=== PATIENT | female | born 1995 | race Caucasian/White ===

== ENCOUNTER 2019-10-03 16:51 | Emergency (ER) | payer BC, OTHER ==
[~2019-10-03] VITALS: Ht 167 cm; Wt 65.9 kg
[2019-10-03] MEDS ORDERED: OMEPRAZOLE (17:05)
[2019-10-03] MEDS ORDERED: FLUTICASONE (17:05)
--- NOTE | 2019-10-03 17:13 | ED Chest Pain ---
General Chief Complaint: Chest Pain Stated Complaint: CHEST PAIN,SOB, HEAVINESS ON CHEST Nursing Triage Note: STATES WHILE AT WORK TODAY SHE STARTED HAVING CHEST PAIN AND PRESSURE. SEES A GI DR FOR HER ACID REFLUX AT [facility]. Nursing Sepsis Screen: No Definite Risk Source: patient Exam Limitations: no limitations History of Present Illness Date Seen by Provider: Oct 03, 2019 Time Seen by Provider: 17:11 Initial Comments To ER with reports of chest pain shortness of breath and heaviness that began while at work. 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 She had to leave work because of the pain and states "I've never driven himself fast and all my life". She denies anxiety as a precipitating factor but seems very anxious. She had her gallbladder removed at [facility] about 7 or 8 weeks ago, she's been having bowel irregularity alternating from constipation to diarrhea, she is scheduled to see office support at [facility] in the upcoming weeks. No fevers or chills. No cough. She is on Prilosec and Carafate currently. Timing/Duration: changing over time Severity/Quality: moderate Activities at Onset: none ASA po RESTAURANT MAINTENANCE TECHNICIAN: No NTG SL RESTAURANT MAINTENANCE TECHNICIAN: No Associated Symptoms: shortness of breath Allergies and Home Medications Allergies Coded Allergies: No Known Drug Allergies (Unverified , 10/03/19) Home Medications Metoclopramide HCl 5 Mg Tablet, 5 MG PO TID Prescribed by: PURNIMA WINSLOW on 10/03/191947 Pantoprazole Sodium 40 Mg Tablet.dr, 40 MG PO DAILY Prescribed by: PURNIMA WINSLOW on 10/03/191947 Patient Home Medication List Home Medication List Reviewed: Yes Review of Systems Review of Systems Constitutional: see HPI EENTM: No Symptoms Reported Respiratory: See HPI, Shortness of Air Cardiovascular: See HPI, Chest Pain Gastrointestinal: No Symptoms Reported Genitourinary: No Symptoms Reported Musculoskeletal: no symptoms reported Skin: no symptoms reported Psychiatric/Neurological: No Symptoms Reported Endocrine: No Symptoms Reported Past Eyurevl-Qptkcj-Aenftp Hx Patient Social History Alcohol Use: Denies Use Recreational Drug Use: No Smoking Status: Never a Smoker Recent Foreign Travel: No Contact w/Someone Who Travel: No Recent Infectious Disease Expo: No Recent Hopitalizations: No Seasonal Allergies Seasonal Allergies: No Past Medical History Surgeries: No Respiratory: No Cardiac: No Neurological: No Genitourinary: No Gastrointestinal: Yes Gastroesophageal Reflux Musculoskeletal: No Endocrine: No HEENT: No Cancer: No Psychosocial: No Integumentary: No Physical Exam Vital Signs Vital Signs - First Documented 10/03/19 16:55 Temp 36.3 Pulse 73 Resp 16 B/P (MAP) 139/93 (108) Pulse Ox 99 O2 Delivery Room Air Capillary Refill : Less Than 3 Seconds Height, Weight, BMI Height: '" Weight: lbs. oz. kg; 23.00 BMI Method: General Appearance: No Apparent Distress, WD/WN, Anxious Respiratory: No Accessory Muscle Use, No Respiratory Distress Cardiovascular: Regular Rate, Rhythm, Normal Peripheral Pulses Gastrointestinal: No Organomegaly, Non Tender, Soft Neurologic/Psychiatric: Alert, Oriented x3 Skin: Normal Color, Warm/Dry Progress/Results/Core Measures Results/Orders Lab Results Laboratory Tests Test 10/03/19 17:00 Range/Units White Blood Count 8.2 4.3-11.0 10^3/uL Red Blood Count 5.01 4.35-5.85 10^6/uL Hemoglobin 15.5 11.5-16.0 G/DL Hematocrit 46 35-52 % Mean Corpuscular Volume 91 80-99 FL Mean Corpuscular Hemoglobin 31 25-34 PG Mean Corpuscular Hemoglobin Concent 34 32-36 G/DL Red Cell Distribution Width 12.2 10.0-14.5 % Platelet Count 195 130-400 10^3/uL Mean Platelet Volume 11.8 H 7.4-10.4 FL Neutrophils (%) (Auto) 63 42-75 % Lymphocytes (%) (Auto) 28 12-44 % Monocytes (%) (Auto) 7 0-12 % Eosinophils (%) (Auto) 2 0-10 % Basophils (%) (Auto) 0 0-10 % Neutrophils # (Auto) 5.2 1.8-7.8 X 10^3 Lymphocytes # (Auto) 2.3 1.0-4.0 X 10^3 Monocytes # (Auto) 0.6 0.0-1.0 X 10^3 Eosinophils # (Auto) 0.2 0.0-0.3 10^3/uL Basophils # (Auto) 0.0 0.0-0.1 10^3/uL D-Dimer < 0.27 0.00-0.49 UG/ML Sodium Level 130 L 135-145 MMOL/L Potassium Level 4.3 3.6-5.0 MMOL/L Chloride Level 96 L 98-107 MMOL/L Carbon Dioxide Level 24 21-32 MMOL/L Anion Gap 10 5-14 MMOL/L Blood Urea Nitrogen 18 7-18 MG/DL Creatinine 1.01 0.60-1.30 MG/DL Estimat Glomerular Filtration Rate > 60 BUN/Creatinine Ratio 18 Glucose Level 94 70-105 MG/DL Calcium Level 9.7 8.5-10.1 MG/DL Corrected Calcium 8.5-10.1 MG/DL Total Bilirubin 0.4 0.1-1.0 MG/DL Aspartate Amino Transf (AST/SGOT) 86 H 5-34 U/L Alanine Aminotransferase (ALT/SGPT) 208 H 0-55 U/L Alkaline Phosphatase 68 40-136 U/L Troponin I <0.028 NG/ML C-Reactive Protein High Sensitivity 0.05 0.00-0.50 MG/DL B-Type Natriuretic Peptide < 10.0 <100.0 PG/ML Total Protein 8.4 H 6.4-8.2 GM/DL Albumin 4.9 H 3.2-4.5 GM/DL Serum Test, Qualitative NEGATIVE NEGATIVE My Orders Orders - PURNIMA WINSLOW APRN Cbc With Automated Diff (10/03/19 16:54) Comprehensive Metabolic Panel (10/03/19 16:54) BNP (10/03/19 16:54) Fibrin Degradation Products (10/03/19 16:54) Troponin I (10/03/19 16:54) Hs C Reactive Protein (10/03/19 16:54) Hcg,Qualitative Serum (10/03/19 16:54) Ed Iv/Invasive Line Start (10/03/19 16:54) Ekg Tracing (10/03/19 16:54) Chest Pa/Lat (2 View) (10/03/19 16:54) Antacid Suspension (Mylanta Suspension (10/03/19 17:15) Lidocaine 2% Viscous 15 Ml (Xylocaine Vi (10/03/19 17:15) Ct Abdomen/Pelvis W (10/03/19 17:46) Iohexol Injection (Omnipaque 350 Mg/Ml 1 (10/03/19 18:00) Received Contrast (Hold Metformin- Contr (10/03/19 18:00) Ns (Ivpb) (Sodium Chloride 0.9% Ivpb Bag (10/03/19 18:00) Metoclopramide Injection (Reglan Injecti (10/03/19 19:45) Diphenhydramine Injection (Benadryl Inje (10/03/19 20:00) Medications Given in ED Current Medications Medications Dose Ordered Sig/Sarkis Route Start Time Stop Time Status Last Admin Dose Admin Al Hydrox/Mg Hydrox/Simethicone 30 ml ONCE ONCE PO 10/03/19 17:15 10/03/19 17:16 DC 10/03/19 17:29 30 ML Lidocaine HCl 10 ml ONCE ONCE PO 10/03/19 17:15 10/03/19 17:16 DC 10/03/19 17:29 10 ML Metoclopramide HCl 5 mg ONCE ONCE IVP 10/03/19 19:45 10/03/19 19:46 DC 10/03/19 19:41 5 MG Vital Signs/I&O 10/03/19 10/03/19 16:55 17:00 Temp 36.3 Pulse 73 Resp 16 B/P (MAP) 139/93 (108) Pulse Ox 99 O2 Delivery Room Air Room Air Blood Pressure Mean: 108 Diagnostic Imaging Diagonstic Imaging: CT Comments NAME: [facility] REC#: [id number] PT STATUS: REG ER : 1995 PHYSICIAN: PURNIMA WINSLOW APRN ADMIT DATE: 10/03/19/ER Draft Date of Exam:10/03/19 CT ABDOMEN/PELVIS W PROCEDURE: CT abdomen and pelvis with contrast. TECHNIQUE: Multiple contiguous axial images were obtained through the abdomen and pelvis after administration of intravenous contrast. Auto Exposure Controls were utilized during the CT exam to meet ALARA standards for radiation dose reduction. INDICATION: Chest pain and pressure, reflux, upper and lower abdominal pain left-sided, bloating and nausea EXAMINATION: CT abdomen and pelvis with contrast 10/03/2019 FINDINGS: Lung bases are clear. Fatty infiltration noted throughout the liver. There is evidence of previous cholecystectomy. The spleen normal. Kidneys and pancreas unremarkable. Adrenal glands normal. The stomach is filled with debris. Dependent hyperdense material within the stomach very likely recently ingested material. A focal mass or hematoma difficult to completely exclude at this time and this could be followed to assure resolution. There are findings of constipation. Appendix normal. No free air, no ascites. The osseous structures demonstrate no acute abnormality. There is a focal collection of air within the right upper quadrant adjacent to the postoperative clips very likely within the duodenum; this is atypical for free air. IMPRESSION: 1. Findings of constipation with no acute inflammatory process appreciated. 2. Stomach filled with debris with a more hyperdense area dependently along the stomach possibly recently ingested material, however, a mass or hematoma difficult to completely exclude at this time and short-term follow-up to assure resolution recommended. Other findings as above. Dictated on workstation # [id number] Dict: 10/03/19 185 Trans: 10/03/191901 MARKY [id number] Interpreted by: JEFERSON HILLMAN MD Electronically signed by: Departure Communication (Admissions) patient is aware of the elevated liver enzymes, this is the reason she is going to see a office support in the next few weeks. 1952-now quite restless after the Reglan. We'll give Benadryl IV. Impression Primary Impression: Chest pain Qualified Codes: R07.9 - Chest pain, unspecified Additional Impression: Constipation Disposition: HOME, SELF-CARE Condition: Stable Departure-Patient Inst. Decision time for Depature: 19:47 Referrals: NO,LOCAL PHYSICIAN (PCP) Primary Care Physician Patient Instructions: Constipation, Adult (DC) Add. Discharge Instructions: 1. Follow-up with gastroenterology as directed. Take MiraLAX 1 capful in a small glass of water every 20 minutes until you have a bowel movement. Alternatively you could put 6 or 7 capfuls and a bottle of Gatorade and drink 2 or 3 of these. Stop the Prilosec, start the Protonix. Reglan as well. All discharge instructions reviewed with patient and/or family. Voiced un derstanding. Scripts Metoclopramide HCl (Reglan) 5 Mg Tablet 5 MG PO TID, #14 TAB Prov: PURNIMA WINSLOW APRN 10/03/19 Pantoprazole Sodium (Protonix) 40 Mg Tablet.dr 40 MG PO DAILY, #14 TAB Prov: PURNIMA WINSLOW APRN 10/03/19 PURNIMA WINSLOW APRN Oct 03, 2019 17:13
[2019-10-03 17:14] LABS: BASOPHILS % (AUTO) 0 % (0-10); EOSINOPHILS # (AUTO) 0.2 10^3/uL (0.0-0.3); EOSINOPHILS % (AUTO) 2 % (0-10); HEMATOCRIT 46 % (35-52); HEMOGLOBIN 15.5 G/DL (11.5-16.0); LYMPHOCYTES # (AUTO) 2.3 X 10^3 (1.0-4.0); LYMPHOCYTES % (AUTO) 28 % (12-44); MEAN CORPUSCULAR HEMOGLOBIN 31 PG (25-34); MEAN CORPUSCULAR HGB CONC 34 G/DL (32-36); MEAN CORPUSCULAR VOLUME 91 FL (80-99); MEAN PLATELET VOLUME 11.8 FL (7.4-10.4); MONOCYTES # (AUTO) 0.6 X 10^3 (0.0-1.0); MONOCYTES % (AUTO) 7 % (0-12); NEUTROPHILS # (AUTO) 5.2 X 10^3 (1.8-7.8); NEUTROPHILS % (AUTO) 63 % (42-75); PLATELET COUNT 195 10^3/uL (130-400); RED CELL DISTRIBUTION WIDTH 12.2 % (10.0-14.5); WHITE BLOOD COUNT 8.2 10^3/uL (4.3-11.0)
[2019-10-03] MEDS ORDERED: ANTACID SUSP 30 ML UDC (MYLANTA) PO ONE (17:15)
[2019-10-03] MEDS ORDERED: LIDOCAINE 2% VISCOUS 15 ML UDC PO ONE (17:15)
[2019-10-03 17:40] LABS: ALANINE AMINOTRANSFERASE 208 U/L (0-55); ALBUMIN 4.9 GM/DL (3.2-4.5); ALKALINE PHOSPHATASE 68 U/L (40-136); BILIRUBIN,TOTAL 0.4 MG/DL (0.1-1.0); BUN/CREATININE RATIO 18; CALCIUM 9.7 MG/DL (8.5-10.1); CARBON DIOXIDE 24 MMOL/L (21-32); CHLORIDE 96 MMOL/L (98-107); CREATININE SERUM 1.01 MG/DL (0.60-1.30); GFR ESTIMATED > 60; GLUCOSE 94 MG/DL (70-105); POTASSIUM 4.3 MMOL/L (3.6-5.0); SODIUM 130 MMOL/L (135-145); TOTAL PROTEIN 8.4 GM/DL (6.4-8.2)
[2019-10-03] MEDS ORDERED: NS 100 ML (IVPB) BAG IV ONE (18:00)
[2019-10-03] MEDS ORDERED: IOHEXOL 350 MG/ML 100 ML (OMNIPAQUE 350) VIAL IV ONE (18:00)
[2019-10-03] MEDS ORDERED: HOLD METFORMIN - RECEIVED CONTRAST 20 ML VIAL IV SCH (18:00)
--- NOTE | 2019-10-03 18:50 | Diagnostic Imaging Report ---
INDICATION: Anterior chest pain. EXAMINATION: 2 view chest 10/03/2019. FINDINGS: Heart and pulmonary vasculature unremarkable. Lungs and pleural spaces clear. No pneumothorax. IMPRESSION: Negative chest. Dictated by: Dictated on workstation # [id number]
--- NOTE | 2019-10-03 19:03 | Diagnostic Imaging Report ---
PROCEDURE: CT abdomen and pelvis with contrast. TECHNIQUE: Multiple contiguous axial images were obtained through the abdomen and pelvis after administration of intravenous contrast. Auto Exposure Controls were utilized during the CT exam to meet ALARA standards for radiation dose reduction. INDICATION: Chest pain and pressure, reflux, upper and lower abdominal pain left-sided, bloating and nausea EXAMINATION: CT abdomen and pelvis with contrast 10/03/2019 FINDINGS: Lung bases are clear. Fatty infiltration noted throughout the liver. There is evidence of previous cholecystectomy. The spleen normal. Kidneys and pancreas unremarkable. Adrenal glands normal. The stomach is filled with debris. Dependent hyperdense material within the stomach very likely recently ingested material. A focal mass or hematoma difficult to completely exclude at this time and this could be followed to assure resolution. There are findings of constipation. Appendix normal. No free air, no ascites. The osseous structures demonstrate no acute abnormality. There is a focal collection of air within the right upper quadrant adjacent to the postoperative clips very likely within the duodenum; this is atypical for free air. IMPRESSION: 1. Findings of constipation with no acute inflammatory process appreciated. 2. Stomach filled with debris with a more hyperdense area dependently along the stomach possibly recently ingested material, however, a mass or hematoma difficult to completely exclude at this time and short-term follow-up to assure resolution recommended. Other findings as above. Dictated by: Dictated on workstation # [id number]
[2019-10-03] MEDS ORDERED: METOCLOPRAMIDE INJ 10 MG/2 ML (REGLAN) IVP ONE (19:45)
[2019-10-03] MEDS ORDERED: PANT40TA2 PO (19:48)
[2019-10-03] MEDS ORDERED: METO5TAB75 PO (19:48)
[2019-10-03] MEDS ORDERED: diphenhydrAMINE 50 MG/ML INJ (BENADRYL) IVP ONE (20:00)
[2019-10-03 20:20] VITALS: BP 115/83
--- OUTSIDE RECORDS SUMMARY | 2019-10-07 17:41 | XMS REPORT | Continuity of Care Document ---
Author Organization Unknown Address Unknown Phone Unavailable Allergies Active Description Code Type Severity Reaction Onset Reported/Identified Relationship to Patient Clinical Status [place] [address] CORWIN REYEZ N/A N/A 10/03/2019 Yes No Known Drug Allergies [id number] Drug Allergy Unknown N/A 10/03/2019 Medications There is no data. Problems Date Dx Coded Attending Type Code Diagnosis Diagnosed By 05/10/2018 PURNIMA BARROW N92.6 Irregular menstruation, unspecified 05/10/2018 PURNIMA BARROW R74.8 Abnormal levels of other serum enzymes 05/10/2018 R19.4 Nolen ge in bowel habit 05/10/2018 R74.8 Abno rmal levels of other serum enzymes 05/10/2018 BRAVO JESUS R74.8 Abnormal levels of other serum enzymes 05/10/2018 R74.8 Abno rmal levels of other serum enzymes 05/10/2018 R74.8 Abno rmal levels of other serum enzymes 05/10/2018 R10.13 Epi gastric pain 05/10/2018 R74.8 Abno rmal levels of other serum enzymes 05/10/2018 R10.13 Epi gastric pain 05/10/2018 R74.8 Abno rmal levels of other serum enzymes 05/10/2018 R74.8 Abno rmal levels of other serum enzymes 05/10/2018 R10.13 Epi gastric pain 08/19/2018 N92.6 Irre gular menstruation, unspecified 08/19/2018 Z30.011 En counter for initial prescription of contraceptive pills 08/19/2018 KAMRON RAHMAN N92.6 Irregular menstruation, unspecified 08/19/2018 KAMRON RAHMAN Z30.011 Encounter for initial prescription of contraceptive pills 09/12/2018 THALIA SMITH R10 .13 Epigastric pain 09/12/2018 THALIA SMITH R19 .4 Change in bowel habit 09/12/2018 THALIA SMITH R74 .8 Abnormal levels of other serum enzymes 09/16/2018 KAMRON RAHMAN 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 09/16/2018 KAMRON RAHMAN R89.9 Unspecified abnormal finding in specimens from other organs, systems and tissues 10/14/2018 THALIA SMITH D58 .2 Other hemoglobinopathies 10/14/2018 THALIA SMITH R94 .5 Abnormal results of liver function studies 10/14/2018 THALIA SMITH D58 .2 Other hemoglobinopathies 10/14/2018 THALIA SMITH R94 .5 Abnormal results of liver function studies 10/14/2018 THALIA SMITH D58 .2 Other hemoglobinopathies 10/14/2018 THALIA SMITH K86 .1 Other chronic pancreatitis 10/14/2018 THALIA SMITH R94 .5 Abnormal results of liver function studies 10/14/2018 PURNIMA BARROW R94.5 Abnormal results of liver function studies 10/14/2018 THALIA SMITH K86 .1 Other chronic pancreatitis 10/14/2018 THALIA SMITH R94 .5 Abnormal results of liver function studies 10/14/2018 PURNIMA BARROW Z30.09 Encounter for other general counseling and advice on contraception 10/14/2018 PURNIMA BARROW Z82.49 Family history of ischemic heart disease and other diseases of the circulatory system 10/14/2018 PURNIMA BARROW N92.6 Irregular menstruation, unspecified 10/14/2018 PURNIMA BARROW Z30.09 Encounter for other general counseling and advice on contraception 10/14/2018 PURNIMA BARROW R74.8 Abnormal levels of other serum enzymes 10/14/2018 PURNIMA BARROW Z30.09 Encounter for other general counseling and advice on contraception 10/14/2018 THALIA SMITH 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 .2 Other hemoglobinopathies 10/14/2018 THALIA SMITH K86 .1 Other chronic pancreatitis 10/14/2018 THALIA SMITH R94 .5 Abnormal results of liver function studies 10/28/2018 J02.9 Acut e pharyngitis, unspecified 10/28/2018 J06.9 Acut e upper respiratory infection, unspecified 10/28/2018 M26.69 Oth er specified disorders of temporomandibular joint 10/28/2018 KAMRON RAHMAN J02.9 Acute pharyngitis, unspecified 11/04/2018 THALIA SMITH R94 .5 Abnormal results of liver function studies 11/04/2018 THALIA SMITH K86 .1 Other chronic pancreatitis 11/04/2018 THALIA SMITH T18.2XXA Foreign body in stomach, initial encounter 11/04/2018 THALIA SMITH R94 .5 Abnormal results of liver function studies 11/04/2018 THALIA SMITH K85 .90 Acute pancreatitis without necrosis or infection, unspecified 11/04/2018 THALIA SMITH R94 .5 Abnormal results of liver function studies 11/04/2018 THALIA SMITH T18.2XXA Foreign body in stomach, initial encounter 11/04/2018 THALIA SMITH T18.2XXA Foreign body in stomach, initial encounter 11/08/2018 THALIA SMITH R94 .5 Abnormal results of liver function studies 11/08/2018 R94.5 Abno rmal results of liver function studies 11/08/2018 R94.5 Abno rmal results of liver function studies 11/08/2018 R94.5 Abno rmal results of liver function studies 11/08/2018 THALIA SMITH K85 .90 Acute pancreatitis without necrosis or infection, unspecified 11/08/2018 THALIA SMITH K29 .70 Gastritis, unspecified, without bleeding 11/08/2018 THALIA SMITH K29 .70 Gastritis, unspecified, without bleeding 12/30/2018 PURNIMA BARROW R79.1 Abnormal coagulation profile 12/31/2018 PURNIMA BARROW N97.0 Female infertility associated with anovulation 12/31/2018 PURNIMA BARROW R76.0 Raised antibody titer 03/04/2019 [id number] Urinary Tract Infection 03/04/2019 N39.0 Urin stephanie tract infection, site not specified 03/04/2019 N39.0 Urin stephanie tract infection, site not specified 04/11/2019 R11.0 Nausea 04/11/2019 R11.0 Nausea 04/11/2019 R11.0 Nausea 07/01/2019 [id number] GI Problem 07/01/2019 [id number] GI Problem 07/01/2019 R10.10 Upp er abdominal pain, unspecified 07/01/2019 R10.819 Ab dominal tenderness, unspecified site 07/01/2019 R11.0 Nausea 07/01/2019 R10.10 Upp er abdominal pain, unspecified 07/01/2019 R10.819 Ab dominal tenderness, unspecified site 07/01/2019 R11.0 Nausea 07/01/2019 R10.10 Upp er abdominal pain, unspecified 07/01/2019 R10.819 Ab dominal tenderness, unspecified site 07/01/2019 R11.0 Nausea 07/01/[address] for immunization 07/01/2019 R10.10 Upp er abdominal pain, unspecified 07/01/2019 R10.819 Ab dominal tenderness, unspecified site 07/01/2019 R11.0 Nausea 07/15/2019 R10.10 Upp er abdominal pain, unspecified 07/15/2019 R11.0 Nausea 07/20/2019 JESUS, BRAVO [id number] Abdominal Pain 07/20/2019 JESUS, BRAVO [id number] Abdominal Pain 07/20/2019 JESUS, BRAVO 625071 Abdominal Pain 07/20/2019 JESUS, BRAVO 518015 Abdominal Pain 07/21/2019 JESUS, BRAVO K59.00 Constipation, unspecified 07/21/2019 JESUS, BRAVO R10.12 Left upper quadrant pain 07/21/2019 JESUS, BRAVO K59.00 Constipation, unspecified 07/21/2019 JESUS, BRAVO R10.12 Left upper quadrant pain 07/24/2019 AMBERLY PATEL R10.10 Upper abdominal pain, unspecified 07/24/2019 AMBERLY PATEL R11.0 Nausea 07/24/2019 AMBERLY PATEL R94.8 Abnormal results of function studies of other organs and systems 07/24/2019 AMBERLY PATEL R94.8 Abnormal results of function studies of other organs and systems 07/24/2019 R94.8 Abno rmal results of function studies of other organs and systems 07/24/2019 AMBERLY PATEL R10.10 Upper abdominal pain, unspecified 07/24/2019 AMBERLY PATEL R11.0 Nausea 07/24/2019 AMBERLY PATEL R94.8 Abnormal results of function studies of other organs and systems 08/21/2019 AMBERLY PATEL 525 2 Week Follow-up 08/21/2019 AMBERLY PATEL Z90.49 Acquired absence of other specified parts of digestive tract 08/21/2019 AMBERLY PATEL Z90.49 Acquired absence of other specified parts of digestive tract 08/30/2019 125789 Hea rtburn 08/30/2019 190 Polydipsia 08/30/2019 46 Fatigue 08/30/2019 R53.83 Oth er fatigue 08/30/2019 R63.1 Poly dipsia 08/30/2019 R53.83 Oth er fatigue 08/30/2019 R63.1 Poly dipsia 09/19/2019 940678 Diz ziness 09/19/2019 28 Cough 09/19/2019 52 Headache 09/19/2019 82 Sore Throat 09/19/2019 100537 Diz ziness 09/19/2019 28 Cough 09/19/2019 52 Headache 09/19/2019 82 Sore Throat 09/19/2019 J01.10 Acu te frontal sinusitis, unspecified 09/19/2019 M94.0 Eddi drocostal junction syndrome (tietze) 09/19/2019 J01.10 Acu te frontal sinusitis, unspecified 09/19/2019 M94.0 Eddi drocostal junction syndrome (tietze) 10/06/2019 R10.11 Rig ht upper quadrant pain 10/06/2019 R10.31 Rig ht lower quadrant pain 10/06/2019 R11.0 Nausea 10/06/2019 R10.11 Rig ht upper quadrant pain 10/06/2019 R10.31 Rig ht lower quadrant pain 10/06/2019 R11.0 Nausea 10/06/2019 R10.31 Rig ht lower quadrant pain 10/06/2019 R11.0 Nausea 10/06/2019 R10.31 Rig ht lower quadrant pain 10/06/2019 R11.0 Nausea 10/07/2019 R10.10 Upp er abdominal pain, unspecified 10/07/2019 R10.10 Upp er abdominal pain, unspecified 10/07/2019 R11.0 Nausea 10/07/2019 Z90.49 Acq uired absence of other specified parts of digestive tract 10/07/2019 304369 Abd ominal Pain 10/07/2019 919893 Abd ominal Pain 10/07/2019 122025 Abd ominal Pain 10/07/2019 R10.11 Rig ht upper quadrant pain 10/07/2019 R10.31 Rig ht lower quadrant pain 10/07/2019 R11.0 Nausea 10/07/2019 592387 Abd ominal Pain 10/07/2019 023400 Abd ominal Pain 10/07/2019 374295 Abd ominal Pain 10/07/2019 R10.9 Unsp ecified abdominal pain 10/07/2019 R11.2 Naus ea with vomiting, unspecified 10/07/2019 R10.9 Unsp ecified abdominal pain 10/07/2019 R10.9 Unsp ecified abdominal pain Procedures Code Description Performed By Per formed On [id number] CB C AND DIFF (MANUAL DIFF IF NECESSARY) 08/19/2018 GGE8092 CO MPREHENSIVE METABOLIC PANEL 08/19/2018 XIY7134 HC G QUANTITATIVE 08/19/2018 FUZ5690 TH YROID CASCADE 08/19/2018 MXS3164 CB C AND DIFF (MANUAL DIFF IF NECESSARY) 09/16/2018 HNB1231 LIPASE 09/16/2018 REF51 AMB REFERRAL TO OB-TILE AND MOTTLE SUPERVISOR 10/14/2018 REF25 AMB REFERRAL TO GASTROENTEROLOGY 10/14/2018 WTJ7749 CO MPREHENSIVE METABOLIC PANEL 10/14/2018 ZIQ9128 IG G SUBCLASSES 10/14/[address] OTEIN S ANTIGEN, TOTAL AND FREE 10/14/2018 XUS9204 AN TICARDIOLIPIN ANTIBODIES 10/14/2018 SGC5506 BE AS-6-TKDEXFBYNNYC IGG AND IGM 10/14/2018 QVA0812 AN TIPHOSPHOLIPID PANEL II 10/14/2018 WKY9975 AMYLASE 10/14/2018 NAP1766 AN TIPHOSPHOLIPID PANEL II 10/14/2018 HOG3306 CO MPREHENSIVE METABOLIC PANEL 10/14/2018 SDT6421 ES TRADIOL 10/14/2018 QKM9599 FSH 10/14/2018 UAP0304 LA /SSB ANTIBODY 10/14/2018 BQT0105 LIPASE 10/14/[address] OGESTERONE 10/14/[address] OLACTIN 10/14/[address] OTEIN C ACTIVITY 10/14/[address] OTEIN S ACTIVITY 10/14/2018 JYO8446 RO /SSA ANTIBODY 10/14/2018 AUS3811 TH YROID CASCADE 10/14/2018 LSU6134 TE STOSTERONE TOTAL+BIOAVAILABLE 10/14/2018 OBB8280 AMYLASE 10/14/2018 CHA5921 AN TICARDIOLIPIN ANTIBODIES 10/14/2018 KJJ5282 BE DK-5-JNBSGNJAZQGL IGG AND IGM 10/14/2018 QLS2905 CO MPREHENSIVE METABOLIC PANEL 10/14/2018 HVH6302 ES TRADIOL 10/14/2018 BTZ7468 FSH 10/14/2018 VMI1797 LA /SSB ANTIBODY 10/14/2018 YSD9453 LIPASE 10/14/[address] OGESTERONE 10/14/[address] OLACTIN 10/14/[address] OTEIN C ACTIVITY 10/14/[address] OTEIN S ACTIVITY 10/14/2018 QJJ7016 RO /SSA ANTIBODY 10/14/2018 QVN1089 TH YROID CASCADE 10/14/2018 PPC4871 AN TIPHOSPHOLIPID PANEL II 10/14/2018 UIS4706 TE STOSTERONE TOTAL+BIOAVAILABLE 10/14/2018 FPG3658 CU LTURE, THROAT 10/28/2018 POC14 POCT RAPID STREP A 10/28/2018 SUR1 CASE REQUEST OPERATING ROOM 11/04/2018 IVT3 INSER T PERIPHERAL IV 11/04/2018 VZO972 NOT TIFFANIE PHYSICIAN 11/04/2018 CHX531 HEI GHT AND WEIGHT 11/04/2018 JTU325 VIT AL SIGNS 11/04/2018 AYV272 JOHN LY WARMING BLANKET 11/04/2018 LNV3468 UR INE TEST 11/04/2018 ADT8 DISCH ARGE PATIENT 11/04/2018 IJW233 VANCE SING COMMUNICATION 11/04/2018 GMV375 VIT AL SIGNS 11/04/2018 PUA784 GLU COSE POC 11/04/2018 BTZ5722 UR INE TEST 11/08/2018 SUR1 CASE REQUEST OPERATING ROOM 11/08/2018 IVT3 INSER T PERIPHERAL IV 11/08/2018 UGA906 NOT TIFFANIE PHYSICIAN 11/08/2018 MFT999 HEI GHT AND WEIGHT 11/08/2018 SVJ519 VIT AL SIGNS 11/08/2018 IIX791 JOHN LY WARMING BLANKET 11/08/2018 ZEB5237 UR INE TEST 11/08/2018 STI9407 TI SSUE PATHOLOGY OR BIOPSY 11/08/2018 XNB016 VANCE SING COMMUNICATION 11/08/2018 PHP310 VIT AL SIGNS 11/08/2018 IKX123 GLU COSE POC 11/08/2018 JBL5130 AN TIPHOSPHOLIPID PANEL II 12/31/2018 XYC8079 AN TICARDIOLIPIN ANTIBODIES 12/31/2018 VQT8967 BE EU-6-SZHNZYTDYYMC IGG AND IGM 12/31/2018 YJA4563 ES TRADIOL 12/31/2018 NBH2463 FSH 12/31/2018 TWO7188 [place] TEINIZING HORMONE 12/31/[address] OGESTERONE 12/31/[address] OTHROMBIN TIME/INR 12/31/2018 LTN6122 TH YROID CASCADE 12/31/2018 ARZ7926 VVT APL TESTING 12/31/2018 MZU2507 AN TIPHOSPHOLIPID PANEL II 12/31/2018 POC5 POCT URINALYSIS DIPSTICK 03/04/2019 POC5 POCT URINALYSIS DIPSTICK 03/04/2019 POO8036 CB C AND DIFF (MANUAL DIFF IF NECESSARY) 04/11/2019 URO2862 CO MPREHENSIVE METABOLIC PANEL 04/11/2019 OYM1392 HC G QUANTITATIVE 04/11/2019 ELH7280 BI LIRUBIN DIRECT 07/01/2019 YZK9457 CB C AND DIFF (MANUAL DIFF IF NECESSARY) 07/01/2019 PCV7189 CO MPREHENSIVE METABOLIC PANEL 07/01/2019 MLF5846 HC G QUANTITATIVE 07/01/2019 GMN4903 LIPASE 07/01/2019 FEK7642 UR INALYSIS REFLEX 07/01/2019 IMM85 FLU VACCINE GREATER THAN OR EQUAL TO 6MO PRESERVATIVE FREE QUADRIVALENT IM 07/01/2019 CKD8725 CE LIAC SCREEN 07/16/2019 UXQ9223 IG G SUBCLASSES 07/16/[address] ABDOMEN PELVIS W CONTRAST 07/20/2019 IVT3 INSER T PERIPHERAL IV 07/20/2019 XSZ5725 UR INALYSIS REFLEX 07/20/2019 MPP8403 UR INE TEST 07/20/2019 CTT0548 CB C AND DIFF (MANUAL DIFF IF NECESSARY) 07/20/2019 BPW6075 CO MPREHENSIVE METABOLIC PANEL 07/20/2019 DDJ3255 LACTATE 07/20/2019 RQU6348 LIPASE 07/20/2019 KUV5600 MA GNESIUM 07/20/[address] ABDOMEN PELVIS W CONTRAST 07/20/2019 ADT18 ED D ISCHARGE PATIENT 07/21/2019 REF27 AMB REFERRAL TO GENERAL SURGERY 07/24/2019 OYU0163 UR INE TEST 08/07/2019 SUR1 CASE REQUEST OPERATING ROOM 08/07/2019 IVT3 INSER T PERIPHERAL IV 08/07/2019 MNY112 NOT TIFFANIE PHYSICIAN 08/07/2019 CKU192 HEI GHT AND WEIGHT 08/07/2019 SIG657 VIT AL SIGNS 08/07/2019 GDL294 JOHN LY WARMING BLANKET 08/07/2019 EGH674 GLU COSE POC 08/07/2019 TOM078 NOT TIFFANIE PHYSICIAN 08/07/2019 XCE085 VANCE SING COMMUNICATION 08/07/2019 OWQ829 VANCE SING OXYGEN ORDERS/INSTRUCTIONS 08/07/2019 QVM425 HATTIE SURE BLOOD PRESSURE 08/07/2019 BQH011 VIT AL SIGNS 08/07/2019 RGJ222 CON TINUOUS PULSE OXIMETRY 08/07/2019 LDE446 JOHN LY WARMING BLANKET 08/07/2019 THJ443 GLU COSE POC 08/07/2019 NVB8230 TI SSUE PATHOLOGY OR BIOPSY 08/07/2019 JJH4351 TI SSUE PATHOLOGY OR BIOPSY 08/07/2019 DIET24 DIET 08/07/2019 KBQ529 ACT IVITY TOLERATED 08/07/2019 EIJ229 AUSTEN GHT BEARING STATUS 08/07/2019 GGY213 WOU ND CARE ROUTINE (SPECIFY) 08/07/2019 QKY117 DIS CHARGE INSTRUCTIONS 08/07/2019 NPF599 PAT IENT MAY SHOWER 08/07/2019 NUR6 ACTIV ITY ORDER 08/07/2019 HSJ780 DIS CHARGE INSTRUCTIONS 08/07/2019 ADT8 DISCH ARGE PATIENT 08/07/2019 OQV1383 CB C AND DIFF (MANUAL DIFF IF NECESSARY) 08/30/2019 ANL1090 CO MPREHENSIVE METABOLIC PANEL 08/30/2019 AVH4285 LIPASE 08/30/2019 IPP3827 TH YROID CASCADE 08/30/2019 HZG3283 CB C AND DIFF (MANUAL DIFF IF NECESSARY) 10/06/2019 VIP3388 CO MPREHENSIVE METABOLIC PANEL 10/06/2019 MLE7928 HC G QUANTITATIVE 10/06/2019 RVG4528 LIPASE 10/06/2019 WFH4339 CU LTURE, URINE 10/06/2019 LKU5401 UR INALYSIS REFLEX 10/06/2019 RBI6073 UR INALYSIS MICROSCOPIC ONLY 10/06/2019 REF25 AMB REFERRAL TO GASTROENTEROLOGY 10/07/2019 XQW4047 CB C AND DIFF (MANUAL DIFF IF NECESSARY) 10/07/2019 OVH4116 CO MPREHENSIVE METABOLIC PANEL 10/07/2019 TPB0597 LIPASE 10/07/2019 EEQ6557 MA GNESIUM 10/07/2019 DIET41 DIET NPO 10/07/2019 IVT3 INSER T PERIPHERAL IV 10/07/2019 SKL9948 UR INALYSIS REFLEX 10/07/2019 GNF1634 UR INE TEST 10/07/2019 IZL2345 UR INALYSIS REFLEX 10/07/2019 YYZ6527 UR INE TEST 10/07/[address] ABDOMEN PELVIS W CONTRAST 10/07/2019 ADT9 ED AD STEPH TO INPATIENT 10/07/2019 HKJ562 IP CONSULT TO GASTROENTEROLOGY 10/07/2019 COD2 FULL CODE 10/07/2019 SMT3206 BA SIC METABOLIC PANEL 10/07/2019 ZQQ0823 CO MPLETE BLOOD COUNT 10/07/2019 FBU866 ACT IVITY TOLERATED 10/07/2019 VQA344 NOT TIFFANIE PHYSICIAN 10/07/2019 QYS902 VIT AL SIGNS 10/07/2019 ZZJ771 MANOLO DDER SCANNING ALGORITHM 10/07/2019 Results Test Result Range CBC AND DIFF (MANUAL DIFF IF NECESSARY) - 08/19/18 11:20 WBC 6.14 4.00-11.00 Hematocrit 46 36-45 Hemoglobin 15.3 12.0-15.0 MCH 32 27-34 MCHC 34 32-36 MCV 94 80-99 MPV 12.3 9.4-12.3 Platelet Count 185 140-400 RBC 4.83 4.00-5.00 RDW 12.7 9.0-14.5 % NEUTROPHILS 63 45-78 %LYMPHOCYTES 30 15-47 %MONOCYTES 5 0-12 %EOSINOPHILS 2 0-7 %BASOPHILS 0 0-2 # GRANULOCYTES 3.84 1.70-6.80 # LYMPHOCYTES 1.84 1.00-3.30 # MONOCYTES 0.31 0.20-0.90 # EOSINOPHILS 0.13 0.00-0.40 # BASOPHILS 0.02 0.00-0.10 COMPREHENSIVE METABOLIC PANEL - 08/19/18 11:20 Alanine Aminotransferase 65 0-34 Albumin 4.4 3.5-5.0 Alkaline Phosphatase 46 42-140 Aspartate Aminotransferase 36 15- 46 Blood Urea Nitrogen 13 7-26 Chloride 103 96-112 Carbon Dioxide 31 20-32 Creatinine 0.8 0.4-1.1 Glucose 62 70-100 Potassium 4.9 3.5-5.3 Sodium 142 133-147 Calcium 9.7 8.4-10.5 Anion Gap 8 TX 5-17 Protein Total Serum 7.3 6.0-8.2 BILIRUBIN TOTAL 0.4 0.2-1.3 GFR FEMALE AA 107 TX 60-200 GFR FEMALE NON-AA 89 TX 60-200 HCG QUANTITATIVE - 08/19/18 11:20 HCG SERUM QT <2 NRG THYROID CASCADE - 08/19/18 11:20 Thyroid Stimulating Hormone 1.13 0. 47-4.68 URINE TEST - 09/12/18 08:18 UCG URINE Negative Negative CBC AND DIFF (MANUAL DIFF IF NECESSARY) - 09/16/18 19:03 WBC 8.08 4.00-11.00 Hematocrit 42 36-45 Hemoglobin 14.0 12.0-15.0 MCH 32 27-34 MCHC 34 32-36 MCV 94 80-99 MPV 12.5 9.4-12.3 Platelet Count 166 140-400 RBC 4.44 4.00-5.00 RDW 12.3 9.0-14.5 % NEUTROPHILS 60 45-78 %LYMPHOCYTES 32 15-47 %MONOCYTES 6 0-12 %EOSINOPHILS 1 0-7 %BASOPHILS 0 0-2 # GRANULOCYTES 4.86 1.70-6.80 # LYMPHOCYTES 2.62 1.00-3.30 # MONOCYTES 0.48 0.20-0.90 # EOSINOPHILS 0.10 0.00-0.40 # BASOPHILS 0.02 0.00-0.10 LIPASE - 09/16/18 19:03 Lipase 334 23-300 COMPREHENSIVE METABOLIC PANEL - 10/14/18 08:57 Alanine Aminotransferase 66 0-34 Albumin 4.4 3.5-5.0 Alkaline Phosphatase 48 42-140 Aspartate Aminotransferase 35 15- 46 Blood Urea Nitrogen 14 7-26 Chloride 100 96-112 Carbon Dioxide 30 20-32 Creatinine 0.8 0.4-1.1 Glucose 73 70-100 Potassium 4.3 3.5-5.3 Sodium 138 133-147 Calcium 9.7 8.4-10.5 Anion Gap 8 TX 5-17 Protein Total Serum 7.3 6.0-8.2 BILIRUBIN TOTAL 0.7 0.2-1.3 GFR FEMALE AA 107 60-200 GFR FEMALE NON-AA 89 60-200 IGG SUBCLASSES - 10/14/18 08:57 IgG Serum 3497 [id number] IgG Subclass 1 540 248-810 IgG Subclass 2 471 130-555 IgG Subclass 3 64 15-102 IgG Subclass 4 35 2-96 AMYLASE - 10/14/18 10:12 Amylase 81 30-130 LIPASE - 10/14/18 10:12 Lipase 420 23-300 COMPREHENSIVE METABOLIC PANEL - 10/14/18 10:12 Alanine Aminotransferase 75 0-34 Albumin 5.0 3.5-5.0 Alkaline Phosphatase 54 42-140 Aspartate Aminotransferase 40 15- 46 Blood Urea Nitrogen 14 7-26 Chloride 100 96-112 Carbon Dioxide 29 20-32 Creatinine 0.8 0.4-1.1 Glucose 67 70-100 Potassium 4.3 3.5-5.3 Sodium 140 133-147 Calcium 10.1 8.4-10.5 Anion Gap 11 TX 5-17 Protein Total Serum 8.4 6.0-8.2 BILIRUBIN TOTAL 0.7 0.2-1.3 GFR FEMALE AA 107 60-200 GFR FEMALE NON-AA 89 60-200 THYROID CASCADE - 10/14/18 10:12 Thyroid Stimulating Hormone 1.88 0. 47-4.68 FSH - 10/14/18 10:12 FSH 10 NRG PROLACTIN - 10/14/18 10:12 Prolactin 7 3-19 PROGESTERONE - 10/14/18 10:12 Progesterone 0.8 NRG ESTRADIOL - 10/14/18 10:12 Estradiol Serum 21 NRG PROTEIN C ACTIVITY - 10/14/18 10:12 PROTEIN C ACTIVITY 103 70-150 ANTIPHOSPHOLIPID PANEL II - 10/14/18 10: 12 PROTIME 16.7 11.4-15.0 INR 1.4 TX 0.8-1.2 APTT 31 22-34 PROTEIN S ACTIVITY - 10/14/18 10:12 PROTEIN S ACTIVITY 92 57-140 DRVVT APL TESTING - 10/14/18 10:12 DRVVT Positive Negative HEXOGONAL PHASE PHOSPHOLIPID APL TESTING - 10/14/18 10:12 HEXAGONAL PHASE PHOSPHOLIPID Negative N egative LA/SSB ANTIBODY - 10/14/18 10:12 LA/SSB Antibody Negative Negative RO/SSA ANTIBODY - 10/14/18 10:12 RO/SSA Antibody Negative Negative QLVX-9-HXSDPZWKAZYV IGG AND IGM - 10:12 B2 GLYCOPROTEIN I (IGG)AB <6 0-20 B2 GLYCOPROTEIN I (IGM)AB 2 0-20 ANTICARDIOLIPIN ANTIBODIES - 10/14/18 10 :12 ANTICARDIOLIPIN IGG 7 0-20 ANTICARDIOLIPIN IGM 4 0-20 TESTOSTERONE TOTAL+BIOAVAILABLE - 10:12 Testosterone Bioavailable 1.6 NRG Testosterone Bioavailable % 8.2 NR G Testosterone Total 20 NRG CULTURE, THROAT - 10/28/18 14:21 Culture result No beta hemolytic Streptococ cus species isolated NRG URINE TEST - 11/04/18 08:31 UCG URINE Negative Negative URINE TEST - 11/08/18 08:19 UCG URINE Negative Negative PROTHROMBIN TIME/INR - 12/31/18 18:05 INR 1.0 TX 0.8-1.2 Protime 13.6 11.4-15.0 THYROID CASCADE - 12/31/18 18:05 Thyroid Stimulating Hormone 2.00 0. 47-4.68 LUTEINIZING HORMONE - 12/31/18 18:05 Luteinizing Hormone 3 NRG FSH - 12/31/18 18:05 FSH 5 NRG PROGESTERONE - 12/31/18 18:05 Progesterone 0.5 NRG ESTRADIOL - 12/31/18 18:05 Estradiol Serum 15 NRG ANTICARDIOLIPIN ANTIBODIES - 12/31/18 18 :05 ANTICARDIOLIPIN IGG 7 0-20 ANTICARDIOLIPIN IGM 4 0-20 PERC-4-JHLOTCFEZCLG IGG AND IGM - 18:05 B2 GLYCOPROTEIN I (IGG)AB <6 0-20 B2 GLYCOPROTEIN I (IGM)AB 1 0-20 ANTIPHOSPHOLIPID PANEL II - 12/31/18 18: 05 PROTIME 13.9 11.4-15.0 INR 1.1 TX 0.8-1.2 APTT 28 22-34 DRVVT APL TESTING - 12/31/18 18:05 DRVVT Negative Negative CBC AND DIFF (MANUAL DIFF IF NECESSARY) - 04/11/19 10:15 WBC 5.46 4.00-11.00 Hematocrit 44 36-45 Hemoglobin 14.7 12.0-15.0 MCH 31 27-34 MCHC 34 32-36 MCV 92 80-99 MPV 13.1 9.4-12.3 Platelet Count 159 140-400 RBC 4.72 4.00-5.00 RDW 12.5 11.5-14.5 % NEUTROPHILS 54 45-78 %LYMPHOCYTES 37 15-47 %MONOCYTES 7 0-12 %EOSINOPHILS 2 0-7 %BASOPHILS 1 0-2 # GRANULOCYTES 2.92 1.70-6.80 # LYMPHOCYTES 2.04 1.00-3.30 # MONOCYTES 0.37 0.20-0.90 # EOSINOPHILS 0.10 0.00-0.40 # BASOPHILS 0.03 0.00-0.10 COMPREHENSIVE METABOLIC PANEL - 04/11/19 10:15 Alanine Aminotransferase 55 0-34 Albumin 4.3 3.5-5.0 Alkaline Phosphatase 48 42-140 Aspartate Aminotransferase 42 15- 46 Blood Urea Nitrogen 16 7-26 Chloride 104 96-112 Carbon Dioxide 28 20-32 Creatinine 0.6 0.4-1.1 Glucose 60 70-100 Potassium 4.4 3.5-5.3 Sodium 140 133-147 Calcium 9.1 8.4-10.5 Anion Gap 8 TX 5-17 Protein Total Serum 7.2 6.0-8.2 BILIRUBIN TOTAL 0.7 0.2-1.3 GFR FEMALE AA >130 60-200 GFR FEMALE NON-AA 123 60-200 HCG QUANTITATIVE - 04/11/19 10:15 HCG SERUM QT <2 NRG CBC AND DIFF (MANUAL DIFF IF NECESSARY) - 07/01/19 11:51 WBC 6.72 4.00-11.00 Hematocrit 46 36-45 Hemoglobin 15.5 12.0-15.0 MCH 31 27-34 MCHC 34 32-36 MCV 92 80-99 MPV 10.9 9.4-12.3 Platelet Count 186 140-400 RBC 5.02 4.00-5.00 RDW 11.8 11.5-14.5 % NEUTROPHILS 67 45-78 %LYMPHOCYTES 27 15-47 %MONOCYTES 5 0-12 %EOSINOPHILS 1 0-7 %BASOPHILS 0 0-2 % IMM GRANS 0 TX 0-1 # GRANULOCYTES 4.53 1.7-6.8 # LYMPHOCYTES 1.80 1.0-3.3 # MONOCYTES 0.30 0.2-0.9 # EOSINOPHILS 0.06 0.0-0.4 # BASOPHILS 0.02 0.0-0.1 BILIRUBIN DIRECT - 07/01/19 11:51 BILIRUBIN DIRECT 0.0 0.0-0.4 COMPREHENSIVE METABOLIC PANEL - 07/01/19 11:51 Alanine Aminotransferase 51 0-34 Albumin 4.5 3.5-5.0 Alkaline Phosphatase 47 42-140 Aspartate Aminotransferase 34 15- 46 Blood Urea Nitrogen 16 7-26 Chloride 103 96-112 Carbon Dioxide 29 20-32 Creatinine 0.7 0.4-1.1 Glucose 78 70-100 Potassium 4.5 3.5-5.3 Sodium 142 133-147 Calcium 9.9 8.4-10.5 Anion Gap 9 TX 5-17 Protein Total Serum 7.6 6.0-8.2 BILIRUBIN TOTAL 0.4 0.2-1.3 GFR FEMALE AA 123 60-200 GFR FEMALE NON-AA 103 60-200 HCG QUANTITATIVE - 07/01/19 11:51 HCG SERUM QT <2 NRG LIPASE - 07/01/19 11:51 Lipase 422 23-300 URINALYSIS REFLEX - 07/01/19 11:53 APPEARANCE, URINE Yellow NRG GLUCOSE URINE Negative Negative BILIRUBIN URINE Negative Negative KETONES URINE Negative Negative SPECIFIC GRAVITY UA <= [place] 1.001-1.03 0 HEMOGLOBIN URINE Negative Negative PH URINE 6.5 TX 5.0-8.0 PROTEIN URINE QUAL Negative Negative UROBILINOGEN URINE Negative Negative NITRITE URINE Negative Negative LEUKOCYTE ESTERASE Negative Negative URINE TEST - 07/16/19 08:06 UCG URINE Negative Negative CELIAC SCREEN - 07/16/19 08:10 CELIAC SCREEN 7 NRG IGG SUBCLASSES - 07/16/19 08:10 IgG Serum 1229 [id number] IgG Subclass 1 494 248-810 IgG Subclass 2 407 130-555 IgG Subclass 3 56 15-102 IgG Subclass 4 30 2-96 URINALYSIS REFLEX - 07/20/19 22:06 APPEARANCE, URINE Yellow NRG GLUCOSE URINE Negative Negative BILIRUBIN URINE Negative Negative KETONES URINE Negative Negative SPECIFIC GRAVITY UA <= TX 1.001-1.03 0 HEMOGLOBIN URINE Negative Negative PH URINE 7.0 TX 5.0-8.0 PROTEIN URINE QUAL Negative Negative UROBILINOGEN URINE Negative Negative NITRITE URINE Negative Negative LEUKOCYTE ESTERASE Negative Negative URINE TEST - 07/20/19 22:06 UCG URINE Negative Negative CBC AND DIFF (MANUAL DIFF IF NECESSARY) - 07/20/19 22:30 WBC 7.41 4.00-11.00 Hematocrit 45 36-45 Hemoglobin 15.7 12.0-15.0 MCH 32 27-34 MCHC 35 32-36 MCV 91 80-99 MPV 10.4 9.4-12.3 Platelet Count 206 140-400 RBC 4.96 4.00-5.00 RDW 11.5 11.5-14.5 % NEUTROPHILS 52 45-78 %LYMPHOCYTES 38 15-47 %MONOCYTES 8 0-12 %EOSINOPHILS 1 0-7 %BASOPHILS 0 0-2 % IMM GRANS 0 TX 0-1 # GRANULOCYTES 3.87 1.7-6.8 # LYMPHOCYTES 2.83 1.0-3.3 # MONOCYTES 0.57 0.2-0.9 # EOSINOPHILS 0.10 0.0-0.4 # BASOPHILS 0.03 0.0-0.1 COMPREHENSIVE METABOLIC PANEL - 07/20/19 22:30 Alanine Aminotransferase 40 0-34 Albumin 4.7 3.5-5.0 Alkaline Phosphatase 47 42-140 Aspartate Aminotransferase 35 15- 46 Blood Urea Nitrogen 25 7-26 Chloride 98 96-112 Carbon Dioxide 32 20-32 Creatinine 0.9 0.4-1.1 Glucose 82 70-100 Potassium 3.7 3.5-5.3 Sodium 141 133-147 Calcium 9.6 8.4-10.5 Anion Gap 11 TX 5-17 Protein Total Serum 8.0 6.0-8.2 BILIRUBIN TOTAL 0.4 0.2-1.3 GFR FEMALE AA 92 60-200 GFR FEMALE NON-AA 77 60-200 LIPASE - 07/20/19 22:30 Lipase 374 23-300 MAGNESIUM - 07/20/19 22:30 Magnesium 2.0 1.4-2.7 LACTATE - 07/20/19 22:30 Lactate 1.3 0.0-2.0 URINE TEST - 08/07/19 11:12 UCG URINE Negative Negative CBC AND DIFF (MANUAL DIFF IF NECESSARY) - 08/30/19 11:00 WBC 4.52 4.00-11.00 Hematocrit 48 36-45 Hemoglobin 16.9 12.0-15.0 MCH 32 27-34 MCHC 35 32-36 MCV 90 80-99 MPV 12.3 9.4-12.3 Platelet Count 213 140-400 RBC 5.37 4.00-5.00 RDW 11.4 11.5-14.5 % NEUTROPHILS 61 45-78 %LYMPHOCYTES 32 15-47 %MONOCYTES 4 0-12 %EOSINOPHILS 2 0-7 %BASOPHILS 0 0-2 % IMM GRANS 0 TX 0-1 # GRANULOCYTES 2.76 1.7-6.8 # LYMPHOCYTES 1.44 1.0-3.3 # MONOCYTES 0.18 0.2-0.9 # EOSINOPHILS 0.11 0.0-0.4 # BASOPHILS 0.02 0.0-0.1 LIPASE - 08/30/19 11:00 Lipase 377 23-300 COMPREHENSIVE METABOLIC PANEL - 08/30/19 11:00 Alanine Aminotransferase 107 0-34 Albumin 5.0 3.5-5.0 Alkaline Phosphatase 57 42-140 Aspartate Aminotransferase 55 15- 46 Blood Urea Nitrogen 13 7-26 Chloride 101 96-112 Carbon Dioxide 28 20-32 Creatinine 0.7 0.4-1.1 Glucose 86 70-100 Potassium 4.8 3.5-5.3 Sodium 140 133-147 Calcium 10.1 8.4-10.5 Anion Gap 11 TX 5-17 Protein Total Serum 8.3 6.0-8.2 BILIRUBIN TOTAL 0.5 0.2-1.3 GFR FEMALE AA 123 60-200 GFR FEMALE NON-AA 103 60-200 THYROID CASCADE - 08/30/19 11:00 Thyroid Stimulating Hormone 1.57 0. 47-4.68 Complete blood count (CBC) with automate d white blood cell (WBC) differential - 10/03/19 17:00 Blood leukocytes automated count (number/volume) 8.2 10*3/uL 4.3-11.0 Blood erythrocytes automated count (number/volume) 5.01 10*6/uL 4.35-5.85 Venous blood hemoglobin measurement (mass/volume) 15.5 g/dL 11.5-16.0 Blood hematocrit (volume fraction) 46 % 35-52 Automated erythrocyte mean corpuscular volume 91 [ foz_us] 80-99 Automated erythrocyte mean corpuscular h emoglobin (mass per erythrocyte) 31 pg 25-34 Automated erythrocyte mean corpuscular h emoglobin concentration measurement (mass/volume) 34 g/dL 32-36 Automated erythrocyte distribution width ratio 12. 2 % 10.0- 14.5 Automated blood platelet count (count/volume) 195 10*3/uL 130-400 Automated blood platelet mean volume measurement 11.8 [foz_us] 7.4-10.4 Automated blood neutrophils/100 leukocytes 63 % 42-75 Automated blood lymphocytes/100 leukocytes 28 % 12-44 Blood monocytes/100 leukocytes 7 % 0-12 Automated blood eosinophils/100 leukocytes 2 % 0-10 Automated blood basophils/100 leukocytes 0 % 0-10 Blood neutrophils automated count (number/volume) 5.2 10*3 1.8-7.8 Blood lymphocytes automated count (number/volume) 2.3 10*3 1.0-4.0 Blood monocytes automated count (number/volume) 0. 6 10*3 0.0-1.0 Automated eosinophil count 0.2 10*3/uL 0 .0-0.3 Automated blood basophil count (count/volume) 0.0 10*3/uL 0.0-0.1 Comprehensive metabolic panel - 10/03/19 17:00 Serum or plasma sodium measurement (moles/volume) 130 mmol/L 135-145 Serum or plasma potassium measurement (moles/volume) 4.3 mmol/L 3.6-5.0 Serum or plasma chloride measurement (moles/volume) 96 mmol/L 98-107 Carbon dioxide 24 mmol/L 21-32 Serum or plasma anion gap determination (moles/volume) 10 mmol/L 5-14 Serum or plasma urea nitrogen measurement (mass/volume ) 18 mg/dL 7-18 Serum or plasma creatinine measurement (mass/volume) 1.01 mg/dL 0.60-1.30 Serum or plasma urea nitrogen/creatinine mass ratio 18 NRG Serum or plasma creatinine measurement w ith calculation of estimated glomerular filtration rate > NRG Serum or plasma glucose measurement (mass/volume) 94 mg/dL 70-105 Serum or plasma calcium measurement (mass/volume) 9.7 mg/dL 8.5-10.1 Serum or plasma total bilirubin measurement (mass/volu me) 0.4 mg/dL 0.1-1.0 Serum or plasma alkaline phosphatase hattie surement (enzymatic activity/volume) 68 U/L 40-136 Serum or plasma aspartate aminotransfera se measurement (enzymatic activity/volume) 86 U/L 5-34 Serum or plasma alanine aminotransferase measurement (enzymatic activity/volume) 208 U/L 0-55 Serum or plasma protein measurement (mass/volume) 8.4 g/dL 6.4-8.2 Serum or plasma albumin measurement (mass/volume) 4.9 g/dL 3.2-4.5 Serum or plasma troponin i.cardiac measu rement (mass/volume) - 10/03/19 17:00 Serum or plasma troponin i.cardiac measurement (mass/v olume) TNP <0.028 Serum or plasma lithium measurement (mol es/volume) - 10/03/19 17:00 BNP PT < 10.0 <100.0 Fibrin D-dimer FEU measurement in platel et poor plasma (mass/volume) - 10/03/19 17:00 Fibrin D-dimer FEU measurement in platelet poor plasma (mass/volume) < ug/mL 0.00-0.49 Serum or plasma C reactive protein measu rement (mass/volume) - 10/03/19 17:00 Serum or plasma C reactive protein measurement (mass/v olume) 0.05 mg/dL 0.00-0.50 Serum or plasma choriogonadotropin (preg liborio test) detection - 10/03/19 17:00 Serum or plasma choriogonadotropin ( test) de tection NEGATIVE NEGATIVE CBC AND DIFF (MANUAL DIFF IF NECESSARY) - 10/06/19 13:25 WBC 5.89 4.00-11.00 Hematocrit 50 36-45 Hemoglobin 17.0 12.0-15.0 MCH 31 27-34 MCHC 34 32-36 MCV 91 80-99 MPV 11.7 9.4-12.3 Platelet Count 193 140-400 RBC 5.45 4.00-5.00 RDW 11.5 11.5-14.5 % NEUTROPHILS 67 45-78 %LYMPHOCYTES 28 15-47 %MONOCYTES 4 0-12 %EOSINOPHILS 1 0-7 %BASOPHILS 0 0-2 % IMM GRANS 0 TX 0-1 # GRANULOCYTES 3.93 1.7-6.8 # LYMPHOCYTES 1.64 1.0-3.3 # MONOCYTES 0.26 0.2-0.9 # EOSINOPHILS 0.03 0.0-0.4 # BASOPHILS 0.02 0.0-0.1 COMPREHENSIVE METABOLIC PANEL - 10/06/19 13:25 Alanine Aminotransferase 207 0-34 Albumin 5.3 3.5-5.0 Alkaline Phosphatase 71 42-140 Aspartate Aminotransferase 71 15- 46 Blood Urea Nitrogen 14 7-26 Chloride 101 96-112 Carbon Dioxide 29 20-32 Creatinine 0.8 0.4-1.1 Glucose 76 70-100 Potassium 4.4 3.5-5.3 Sodium 143 133-147 Calcium 10.6 8.4-10.5 Anion Gap 13 TX 5-17 Protein Total Serum 8.8 6.0-8.2 BILIRUBIN TOTAL 0.6 0.2-1.3 GFR FEMALE AA 106 60-200 GFR FEMALE NON-AA 88 60-200 LIPASE - 10/06/19 13:25 Lipase 520 23-300 HCG QUANTITATIVE - 10/06/19 13:25 HCG SERUM QT <2 NRG URINALYSIS REFLEX - 10/06/19 14:17 APPEARANCE, URINE Yellow NRG GLUCOSE URINE Negative Negative BILIRUBIN URINE Negative Negative KETONES URINE Trace Negative SPECIFIC GRAVITY UA <= TX 1.001-1.03 0 HEMOGLOBIN URINE Moderate Negative PH URINE 6.5 TX 5.0-8.0 PROTEIN URINE QUAL Negative Negative UROBILINOGEN URINE Negative Negative NITRITE URINE Negative Negative LEUKOCYTE ESTERASE Positive Negative URINALYSIS MICROSCOPIC ONLY - 10/06/19 1 4:17 MICROSCOPIC RBC URINE 0-5 0-5 MICROSCOPIC WBC URINE 21-40 0-5 EPITHELIAL CELLS Large Absent HYALINE CAST Absent Absent BACTERIA Large Absent Encounters ACCT No. Visit Date/Time Discharge Status Pt. Type Provider Facility Loc./Unit Complaint [id number] 09/19/2019 10:19:44 23:59:59 [facility] Outpatient [facility] Headache [id number] 08/30/2019 10:03:28 23:59:59 CLS Outpatient [facility] Polydipsia [id number] 08/30/2019 10:52:13 23:59:00 DIS Outpatient [facility] Abnormal levels of other serum enzymes [id number] 08/21/2019 09:10:44 23:59:59 CLS Outpatient AMBERLY PATEL GS 2 Week Follow-up [id number] 08/07/2019 10:34:06 14:04:00 DIS Outpatient AMBERLY PATEL MAIN OR CHRONIC CHOLECYSTITIS [id number] 07/24/2019 09:35:47 23:59:59 CLS Outpatient AMBERLY PATEL GS Gallbladder [id number] 07/20/2019 21:10:18 00:18:00 DIS Emergency BRAVO JESUS [facility] ED STOMACH PAIN [id number] 07/16/2019 08:02:20 23:59:00 DIS Outpatient [facility] Abnormal levels of other serum enzymes [id number] 07/16/2019 08:00:49 08:01:00 DIS Outpatient [facility] NU C MED Upper abdominal pain, unspecified [id number] 07/01/2019 09:59:42 23:59:59 CLS Outpatient [facility] GI Problem [id number] 07/01/2019 11:45:10 23:59:00 DIS Outpatient [facility] Abnormal results of liver function studies [id number] 04/11/2019 09:02:52 23:59:59 CLS Outpatient [facility] FM CS Anxiety [id number] 04/11/2019 16:02:07 23:59:00 DIS Outpatient [facility] Nausea [id number] 03/04/2019 07:43:46 23:59:59 CLS Outpatient [facility] Urinary Tract Infection [id number] 03/04/2019 07:59:24 23:59:00 DIS Outpatient [facility] Dysuria [id number] 12/31/2018 17:58:38 23:59:00 DIS Outpatient PURNIMA BARROW [facility] Female infertility associated with anovu lation [id number] 11/08/2018 08:13:00 10:03:00 DIS Outpatient THALIA SMITH [facility] GI pancreatitis, elevated LFT [id number] 11/04/2018 08:22:12 10:22:00 DIS Outpatient THALIA SMITH [facility] GI pancreatitis [id number] 10/28/2018 13:28:57 23:59:59 CLS Outpatient [facility] not feeling well [id number] 10/28/2018 14:27:11 23:59:00 DIS Outpatient KAMRON RAHMAN [facility] Acute pharyngitis, unspecified [id number] 10/14/2018 08:12:59 23:59:59 CLS Outpatient SCHLACHTER, THALIA [facility] GASTRO Follow-up [id number] 10/14/2018 08:12:37 23:59:59 CLS Outpatient PURNIMA BARROW [facility] Contraception [id number] 09/16/2018 18:48:32 23:59:00 DIS Outpatient [facility] Other hemoglobinopathies [id number] 09/12/2018 09:55:52 23:59:00 DIS Outpatient THALIA SMITH [facility] NUC MED [id number] 09/12/2018 07:46:42 09:54:00 DIS Outpatient THALIA SMITH [facility] NUC MED [id number] 09/12/2018 07:44:35 07:45:00 DIS Outpatient THALIA SMITH [facility] NUC MED Abnormal levels of other serum enzymes [id number] 09/12/2018 06:55:16 07:43:00 DIS Outpatient THALIA SMITH [facility] MRI Abnormal levels of other serum enzymes [id number] 08/19/2018 11:16:31 23:59:00 DIS Outpatient [facility] Irregular menstruation, unspecified [id number] 10/07/2019 12:02:00 Document Registration [id number] 10/07/2019 10:10:02 Document Registration [id number] 10/06/2019 13:14:[address] [facility] US Nausea [id number] 10/06/2019 13:14:[address] [facility] US Nausea [id number] 10/06/2019 13:10:[address] [facility] Right low er quadrant pain [id number] 10/06/2019 11:04:[address] [facility] FMCS Nausea [id number] 09/02/2019 15:36:27 Document Registration [id number] 07/22/2019 10:44:21 Document Registration [id number] 07/09/2019 13:57:41 Document Registration [id number] 07/03/2019 08:03:09 Document Registration [id number] 01/03/2019 16:10:54 Document Registration [id number] 09/03/2018 12:15:08 Document Registration [id number] 08/19/2018 09:57:08 Document Registration [id number] 10/03/2019 16:53:00 020 20:21:00 DIS Emergency PURNIMA WINSLOW APRN [facility] ER CHEST PAIN,SOB, HEAVINE SS ON CHEST
== END 2019-10-03 20:21 | disposition home or self-care (01) ==
LOC: ER 16:53
DX: R07.9 Chest pain, unspecified (principal); K59.00 Constipation, unspecified; K21.9 Gastro-esophageal reflux disease without esophagitis
CPT/HCPCS: 36415; 71046; 74177; 80053; 83880; 84703; 85025; 85379; 86141; 93005

== ENCOUNTER → 2019-11-28 | Outpatient (CLI) | payer BC ==
[~2019-11-28] MED LIST: FLUTICASONE; METO5TAB75 PO; OMEPRAZOLE; PANT40TA2 PO
== END ==
LOC: LAB 10:04
PROVIDERS: ATTEND Nurse Practitioner
DX: D58.2 Other hemoglobinopathies (principal)
CPT/HCPCS: 82375